=== PATIENT | female | born 1980 | race African-American/Black ===

== ENCOUNTER 2016-07-09 19:28 | Emergency (ER) | payer OTHER ==
[2016-07-09 20:48] VITALS: BP 124/62
== END 2016-07-09 20:48 | disposition home or self-care (01) ==
LOC: ED 19:28
DX: S46.911A Strain of unspecified muscle, fascia and tendon at shoulder and upper arm level, right arm, initial encounter (principal); J45.909 Unspecified asthma, uncomplicated; X58.XXXA Exposure to other specified factors, initial encounter; Y93.89 Activity, other specified; Y92.89 Other specified places as the place of occurrence of the external cause; Y99.8 Other external cause status
CPT/HCPCS: J1885

== ENCOUNTER 2016-08-21 11:13 | Emergency (ER) | payer OTHER ==
[~2016-08-21] VITALS: Ht 162.6 cm; Wt 116.8 kg
[2016-08-21 11:17] VITALS: BP 143/69
== END 2016-08-21 11:51 | disposition home or self-care (01) ==
LOC: ED 11:13
DX: S16.1XXA Strain of muscle, fascia and tendon at neck level, initial encounter (principal); S46.912A Strain of unspecified muscle, fascia and tendon at shoulder and upper arm level, left arm, initial encounter; S46.911A Strain of unspecified muscle, fascia and tendon at shoulder and upper arm level, right arm, initial encounter; G44.209 Tension-type headache, unspecified, not intractable; E66.9 Obesity, unspecified; J45.909 Unspecified asthma, uncomplicated; V49.9XXA Car occupant (driver) (passenger) injured in unspecified traffic accident, initial encounter; Y93.89 Activity, other specified; Y99.8 Other external cause status; Y92.89 Other specified places as the place of occurrence of the external cause

== ENCOUNTER 2016-09-11 00:19 | Emergency (ER) | payer OTHER ==
[2016-09-11 02:03] LABS: PLATELET COUNT 242 x10^3mcL (130-400); RED CELL DISTRIBUTION WIDTH 13.2 % (11.5-14.5)
[2016-09-11 02:04] LABS: CALCIUM 9.4 mg/dL (8.5-10.1); CARBON DIOXIDE 28.6 mmol/L (21-32); CHLORIDE SERUM 105 mmol/L (98-107); GFR1 > 60 mL/min; GLUCOSE SERUM 95 mg/dL (74-106); POTASSIUM SERUM 3.6 mmol/L (3.5-5.1); SODIUM SERUM 141 mmol/L (136-145)
[2016-09-11 02:11] LABS: ALBUMIN 3.5 g/dL (3.4-5.0); ALKALINE PHOSPHATASE 80 U/L (46-116); ALT/SGPT 18 U/L (14-59); AST/SGOT 18 U/L (15-37); BILIRUBIN TOTAL 0.31 mg/dL (0.20-1.00); LIPASE 114 IU/L (73-393); TOTAL PROTEIN, SERUM 7.9 g/dL (6.4-8.2)
[2016-09-11 02:12] LABS: BASOPHIL % 4.5 % (0-2)
[2016-09-11 02:36] VITALS: BP 118/76
== END 2016-09-11 05:56 | disposition home or self-care (01) ==
LOC: ED 00:19
PROVIDERS: Emergency Medicine
DX: R07.89 Other chest pain (principal); M54.9 Dorsalgia, unspecified; J45.909 Unspecified asthma, uncomplicated
CPT/HCPCS: 36415; J1885

== ENCOUNTER 2017-02-19 14:03 | Emergency (ER) | payer OTHER ==
[~2017-02-19] VITALS: Ht 162.6 cm; Wt 117.9 kg
[2017-02-19 14:16] VITALS: BP 114/79
== END 2017-02-19 15:56 | disposition home or self-care (01) ==
LOC: ED 14:03
DX: J06.9 Acute upper respiratory infection, unspecified (principal); J45.909 Unspecified asthma, uncomplicated

== ENCOUNTER 2017-10-18 18:22 | Emergency (ER) | payer OTHER ==
[~2017-10-18] VITALS: Ht 162.6 cm; Wt 112.5 kg
[2017-10-18 19:08] VITALS: Ht 162.6 cm; Wt 112.5 kg
[2017-10-18 22:19] VITALS: BP 128/76
== END 2017-10-18 22:19 | disposition home or self-care (01) ==
LOC: ED 18:22
DX: J03.90 Acute tonsillitis, unspecified (principal); J45.909 Unspecified asthma, uncomplicated
CPT/HCPCS: J7512

== ENCOUNTER 2018-02-20 17:46 | Emergency (ER) | payer OTHER ==
[~2018-02-20] VITALS: Ht 162.6 cm; Wt 114.8 kg
[2018-02-20 17:49] VITALS: Ht 162.6 cm; Wt 114.8 kg
[2018-02-20 19:58] VITALS: BP 130/91
== END 2018-02-20 19:58 | disposition home or self-care (01) ==
LOC: ED 17:46
DX: G43.909 Migraine, unspecified, not intractable, without status migrainosus (principal); R42 Dizziness and giddiness; J45.909 Unspecified asthma, uncomplicated
CPT/HCPCS: J0780; J1885

== ENCOUNTER 2018-04-01 16:48 | Emergency (ER) | payer OTHER ==
[~2018-04-01] VITALS: Ht 162.6 cm; Wt 116.2 kg
[2018-04-01 17:07] VITALS: Ht 162.6 cm; Wt 116.2 kg
[2018-04-01 18:03] VITALS: BP 140/99
== END 2018-04-01 18:03 | disposition home or self-care (01) ==
LOC: ED 16:48
DX: M54.41 Lumbago with sciatica, right side (principal); M54.16 Radiculopathy, lumbar region; J45.909 Unspecified asthma, uncomplicated; G43.909 Migraine, unspecified, not intractable, without status migrainosus
CPT/HCPCS: J1885

== ENCOUNTER 2019-05-11 18:12 | Emergency (ER) | payer OTHER ==
[~2019-05-11] VITALS: Ht 162.6 cm; Wt 120.7 kg
[2019-05-11 18:17] VITALS: Ht 162.6 cm; Wt 120.7 kg
[2019-05-11 18:37] VITALS: BP 132/71
== END 2019-05-11 18:37 | disposition home or self-care (01) ==
LOC: ED 18:12
DX: J06.9 Acute upper respiratory infection, unspecified (principal); J45.909 Unspecified asthma, uncomplicated; G43.909 Migraine, unspecified, not intractable, without status migrainosus

== ENCOUNTER 2020-01-22 22:23 | Emergency (ER) | payer OTHER ==
[~2020-01-22] VITALS: Ht 162.6 cm; Wt 115.7 kg
[2020-01-23 00:31] VITALS: BP 117/76
== END 2020-01-23 00:31 | disposition home or self-care (01) ==
LOC: ED 22:23
DX: S29.012A Strain of muscle and tendon of back wall of thorax, initial encounter (principal); S39.012A Strain of muscle, fascia and tendon of lower back, initial encounter; J45.909 Unspecified asthma, uncomplicated; G43.909 Migraine, unspecified, not intractable, without status migrainosus; W01.0XXA Fall on same level from slipping, tripping and stumbling without subsequent striking against object, initial encounter; Y93.89 Activity, other specified; Y92.89 Other specified places as the place of occurrence of the external cause; Y99.8 Other external cause status
CPT/HCPCS: 72072; J1885